=== PATIENT | female | born 1980 | race Caucasian/White ===

== ENCOUNTER 2018-01-19 13:14 | Outpatient (CLI) | payer OTHER | END 2018-01-19 13:15 | disposition home or self-care (01) | LOC: DTY/OP 13:14 | PROVIDERS: ATTEND Specialist | DX: Z01.818 Encounter for other preprocedural examination (principal); E66.01 Morbid (severe) obesity due to excess calories; Z68.42 Body mass index [BMI] 45.0-49.9, adult | CPT/HCPCS: 36415; 80053; 80061; 82306; 82607; 82728; 82746; 83036; 83540; 84425; 84436; 84443; 84480; 85025; 86677; 97802 ==

== ENCOUNTER 2018-03-04 05:30 | Outpatient (CLI) | payer OTHER ==
[2018-03-04 13:29] LABS: BHCG - Serum Negative (NEGATIVE); Pregs Control Background? CLEAR/WHITE (CLR/WHITE); Pregs Control Bar Appear? YES (CONTROL BAR)
== END 2018-03-04 05:31 | disposition home or self-care (01) ==
LOC: LABBT 05:30
PROVIDERS: ATTEND Specialist
DX: Z01.818 Encounter for other preprocedural examination (principal); E11.9 Type 2 diabetes mellitus without complications; I10 Essential (primary) hypertension; E66.01 Morbid (severe) obesity due to excess calories; Z68.43 Body mass index [BMI] 50.0-59.9, adult
CPT/HCPCS: 84703; 93005; 93010

== ENCOUNTER 2018-03-04 12:00 | Inpatient (IN) | payer OTHER ==
[2018-03-04 12:35] VITALS: BMI 46.9
[2018-03-08] MEDS ORDERED: Fentanyl 250 MCG/5 ML VIAL ONE (06:11)
[2018-03-08] MEDS ORDERED: Bupivacaine HCl 0.25%/Epi 0.0005/PF 10 ML VIAL FS ONE ×2 (06:46→07:55)
[2018-03-08] MEDS ORDERED: Midazolam HCl 2 mg/2 ml Vial ONE (06:51)
[2018-03-08] MEDS ORDERED: Heparin 5,000 UNITS/ML VIAL ONE (06:54)
[2018-03-08] MEDS ORDERED: Scopolamine 1.5 mg/72 hour Patch ONE (06:54)
[2018-03-08] MEDS ORDERED: Ketorolac Tromethamine 30 MG/ML VIAL ONE (06:54)
[2018-03-08] MEDS ORDERED: Promethazine HCl 25 MG/ML VIAL IM PRN ×2 (07:15→12:31)
[2018-03-08] MEDS ORDERED: Ondansetron HCl/PF 4 MG/2 ML Vial IVP PRN (07:15)
[2018-03-08] MEDS ORDERED: Promethazine HCl 25 MG/ML VIAL SLOW IVP PRN (07:15)
[2018-03-08] MEDS ORDERED: Acetaminophen 1,000 MG in Premix Bag 1 BAG IVPB ONE (07:15)
[2018-03-08] MEDS ORDERED: Meperidine HCl/PF 25 MG/ML VIAL SLOW IVP PRN (07:15)
[2018-03-08] MEDS ORDERED: Ketorolac Tromethamine 30 MG/ML VIAL IVP SCH (07:15)
[2018-03-08] MEDS ORDERED: Heparin 5,000 UNITS/ML VIAL SC SCH (07:15)
[2018-03-08] MEDS ORDERED: Scopolamine 1.5 mg/72 hour Patch TOP SCH (07:15)
[2018-03-08] MEDS ORDERED: cefOXitin 2 GM in Sodium Chloride 0.9% 100 ML IVPB ONE (07:15)
[2018-03-08] MEDS ORDERED: Fentanyl 100 MCG/2 ML VIAL ONE ×3 (08:54→11:44)
[2018-03-08] MEDS ORDERED: Promethazine HCl 25 MG/ML VIAL ONE (09:18)
[2018-03-08] MEDS ORDERED: hydrALAZINE 20 MG/ML VIAL SLOW IVP PRN (12:31)
[2018-03-08] MEDS ORDERED: diphenhydrAMINE 50 MG/ML VIAL IVP PRN (12:31)
[2018-03-08] MEDS ORDERED: Dextrose 50% Abboject 50 ML SYRINGE SLOW IVP PRN (12:31)
[2018-03-08] MEDS ORDERED: Morphine 4 MG/ML VIAL SLOW IVP PRN (12:31)
[2018-03-08] MEDS ORDERED: Dextrose 5% in Water 1,000 ML IV PRN (12:31)
[2018-03-08] MEDS ORDERED: Ondansetron PF 4 MG/2 ML Vial IVP PRN (12:31)
[2018-03-08] MEDS: Morphine 4 MG/ML VIAL SLOW IVP PRN ×3 (13:33→21:38)
[2018-03-08] MEDS ORDERED: Ondansetron PF 4 MG/2 ML Vial ONE (15:42)
[2018-03-08] MEDS ORDERED: Metoclopramide HCl 10 MG/2 ML VIAL ONE (15:42)
[2018-03-08] MEDS ORDERED: Glycopyrrolate 0.2 MG/ML 5 ML SYRINGE ONE (15:42)
[2018-03-08] MEDS ORDERED: Rocuronium Bromide 10 MG/ML (10ML VIAL) ONE (15:42)
[2018-03-08] MEDS ORDERED: PROPOFOL 200 MG/20 ML VIAL ONE (15:42)
[2018-03-08] MEDS ORDERED: Lidocaine 1% PF 5 ML VIAL ONE (15:42)
[2018-03-08] MEDS: D5 1/2 NS w/20 mEq KCL 1,000 ML IV SCH ×3 (16:05→23:07)
--- NOTE | 2018-03-08 17:53 | OP ---
DATE OF PROCEDURE: 03/08/2018 PREOPERATIVE DIAGNOSIS: Morbid obesity. POSTOPERATIVE DIAGNOSIS: Morbid obesity. PROCEDURE PERFORMED: Laparoscopic sleeve gastrectomy. ANESTHESIA: General endotracheal. INDICATIONS: The patient is a 37-year-old morbidly obese white female. She presents following extensive preoperative evaluation and education for her sleeve gastrectomy. DESCRIPTION OF PROCEDURE: Informed consent was obtained. The patient was taken to the operating room where general endotracheal anesthesia was obtained with the patient in supine position. Abdomen was prepped with ChloraPrep and draped in sterile fashion. Local anesthetic was infiltrated and 5 mm supraumbilical incision was created through which Veress needle was passed to the peritoneal cavity and pneumoperitoneum established using carbon dioxide up to a pressure of 15 mmHg. A 5 mm trocar port was passed through this same incision. Laparoscopic camera was passed through this port. Under direct vision, 4 additional ports were placed including bilateral 5 mm subcostal ports, a 12 mm right paramedian port and a 15 mm left paramedian port. A 5 mm epigastric incision was created through which Nathansen retractor was passed into the abdominal cavity and used to retract the left lobe of the liver. The patient was placed into reverse Trendelenburg position. The ViSiGi device was advanced within the stomach and used to decompress this. The pylorus was identified and beginning 4 cm proximal to the pylorus, the omentum and vascular tissue along the greater curvature was divided using the LigaSure in an ascending fashion up to the angle of His. All posterior adhesions were mobilized. The short gastric vessels were carefully divided and then hemostasis was maintained using the LigaSure. Once this was completely mobilized, the ViSiGi was carefully positioned at the level of the pylorus and placed to suction, which was clearly defining the lesser curvature of the stomach. The gastrectomy was then performed using a series of fires of the [place] stapler using a green load followed by a gold load and a series of blue loads until completion of the gastrectomy. The ViSiGi along the lesser curvature was used as a size 36 bougie to guide in the gastric division. Care was taken to avoid narrowing the incisura or the gastroesophageal junction. The integrity of the staple line was then assessed by insufflating gas through the ViSiGi while irrigating along the staple line. There was no evidence of an air leak. There was no evidence of bleeding along the staple line. The resected stomach was then removed through the 15 mm port and the fascia was closed with 0 Vicryl suture using a GraNee needle. I then closed the 12 mm port also using the GraNee needle and 0 Vicryl suture. The Max retractor was removed. All ports and instruments were removed under direct vision. All irrigant was aspirated. Pneumoperitoneum was carefully evacuated. 0.25% Marcaine with epinephrine was infiltrated into each port site. Skin edges approximated with 4-0 Monocryl subcuticular suture. Dermabond was placed externally. There were no complications. The patient tolerated the procedure well and was taken to recovery room in stable condition. FINDINGS: The patient had no intraabdominal adhesions and no abnormal anatomy. There was no evidence of fatty liver, but her liver was still relatively large. The surgery was performed safely and with essentially no blood loss. There was an excellent appearance to the sleeve at the end of the procedure and no evidence of any leak. She was taken to recovery room in stable condition. Job ID: [id number]
[2018-03-08] MEDS: Acetaminophen 1,000 MG in Premix Bag 1 BAG IVPB SCH ×2 (18:01→23:07)
[2018-03-08] MEDS: Ketorolac Tromethamine 30 MG/ML VIAL IVP SCH ×2 (18:01→23:08)
[2018-03-08] MEDS ORDERED: Enoxaparin Sodium 40 MG/0.4 ML SYRINGE SC SCH (21:00)
[2018-03-09] MEDS: Acetaminophen 1,000 MG in Premix Bag 1 BAG IVPB SCH (05:09)
[2018-03-09] MEDS: Ketorolac Tromethamine 30 MG/ML VIAL IVP SCH (05:09)
[2018-03-09 06:25] LABS: #Eosinphils 0.1 thou/uL (0.0-0.7); #Lymphocytes 2.2 thou/uL (1.20-3.40); #Monocytes 0.5 thou/uL (0.11-0.59); #Neutrophils 3.6 thou/uL (1.40-6.50); %Basophils 0.3 % (0.0-1.0); %Eosinophils 1.2 % (0.0-10.0); %Lymphocytes 34.9 % (21.0-51.0); %Monocytes 7.3 % (0.0-10.0); %Neutrophils 56.3 % (42.0-75.0); Hemoglobin 10.6 g/dL (12.0-16.0); Mean Corpuscular HGB CONC 32.5 g/dL (32.0-36.0); Mean Corpuscular Hemoglobin 28.3 pg (27.0-31.0); Mean Corpuscular Volume 87.1 fL (78.0-98.0); Mean Platelet Volume 6.6 fL (7.4-10.4); Platelet Count 348 thou/uL (130-400); RBC Distribution Width 12.6 % (11.5-14.5); Red Blood Cell (RBC) Count 3.73 mill/uL (4.20-5.40); White Blood Cell (WBC) Count 6.3 thou/uL (4.8-10.8)
[2018-03-09 06:41] LABS: Anion Gap 14 mmol/L (10-20); BUN (Urea Nitrogen) 4 mg/dL (7.0-18.7); Calc. Creatinine Clearance 228 mL/min (70-130); Calcium 8.1 mg/dL (7.8-10.44); Carbon Dioxide 23 mmol/L (22-29); Chloride 105 mmol/L (98-107); Estimated GFR-MDRD Greater than 90; Glucose 115 mg/dL (70-105); Potassium 3.8 mmol/L (3.5-5.1); Sodium 138 mmol/L (136-145)
[2018-03-09 08:18] VITALS: BP 111/73; TEMP 97.7
[2018-03-09] MEDS ORDERED: Pantoprazole 40 MG VIAL IVP SCH (09:00)
[2018-03-09] MEDS ORDERED: Hydrocodone-Acetamin 15 ML UDCUP PO PRN (18:00)
== END 2018-03-09 11:24 | disposition home or self-care (01) | DRG 621 ==
LOC: SURG A 03-08 05:47
PROVIDERS: ADMIT Specialist; ATTEND Specialist
PROC: 0DB64Z3 Excision of Stomach, Percutaneous Endoscopic Approach, Vertical (ICD-10-PCS; principal; 2018-03-08)
DX: E66.01 Morbid (severe) obesity due to excess calories (principal); I10 Essential (primary) hypertension; E11.9 Type 2 diabetes mellitus without complications; K21.9 Gastro-esophageal reflux disease without esophagitis; E03.9 Hypothyroidism, unspecified; Z68.42 Body mass index [BMI] 45.0-49.9, adult
CPT/HCPCS: 36415; 80048; 85025; 88307; 88312; C9113; J0131; J0694; J1644; J1650; J1885; J2001; J2250; J2270; J2405; J2550; J2704; J2765; J3010; J7050

== ENCOUNTER 2018-11-04 08:48 | Outpatient (CLI) | payer OTHER ==
--- NOTE | 2018-11-04 10:22 | ULT ---
ULTRASOUND GALLBLADDER RIGHT UPPER QUADRANT: CLINICAL HISTORY: Abdominal pain. COMPARISON: None. FINDINGS: Pancreas: Obscured by bowel gas. Liver:Heterogeneous echotexture which may be due to hepatic steatosis or hepatocellular disease. Limi contreras evaluation for hepatic masses and intrahepatic biliary dilatation. The contour of the hepatic margin is maintained. Right hepatic lobe measures 17.1 cm. Portal vein: Patent with appropriate directional flow. Gallbladder: Sonographic evidence of sludge and stones within the lumen of the gallbladder. Gallbladd er wall is not thickened. No pericholecystic fluid. Ferreira's sign:Negative. Bile ducts: Common bile duct diameter is 0.29 cm. Right kidney: No hydronephrosis. Right kidney measures 5.5 x 5.6 x 10.8 cm in length. IMPRESSION: 1. Sonographic evidence of sludge and stones within the lumen of the gallbladder. No definite sonogra phic evidence of cholecystitis. Consider HIDA scan. 2. Mild hepatomegaly and coarsening of the hepatic parenchymal echotexture which may be due to hepati c steatosis or hepatocellular disease. If there is concern for hepatic masses, liver mass protocol CT can be performed. Transcribed Date/Time: 11/04/2018 10:50 AM
--- NOTE | 2018-11-04 10:33 | RAD ---
UPPER GI: HISTORY: Upper abdominal pain, uncertain etiology. Patient has had a bariatric surgery performed in February 27. Exposure 1.7 minutes; dose 28.803 uGy*^cm2. FINDINGS: Initial feather cutting machine feeder abdomen radiograph demonstrates a nonspecific bowel gas pattern. Thoracic esophagus has an overall normal course and caliber. No mucosal abnormality. There is evidenc e of intermittent reflux during fluoroscopy. The residual stomach and small bowel loops have an overall appropriate mucosal appearance. Multiple n ormal caliber small bowel loops. Supine and upright abdomen radiograph demonstrates contrast opacifying multiple small bowel loops. Contrast is also noted in the colon suggesting a rapid transit time. IMPRESSION: 1. Intermittent reflux during fluoroscopy. 2. No evidence of obstruction at the level of the bariatric surgical change. There is rapid transit w ith contrast opacifying the colon on the postprocedure supine and upright radiographs series. Transcribed Date/Time: 11/04/2018 10:53 AM
== END 2018-11-04 08:49 | disposition home or self-care (01) ==
LOC: ULT 08:48
PROVIDERS: ATTEND Specialist
DX: R10.10 Upper abdominal pain, unspecified (principal); K21.9 Gastro-esophageal reflux disease without esophagitis; K80.20 Calculus of gallbladder without cholecystitis without obstruction; K82.8 Other specified diseases of gallbladder; R16.0 Hepatomegaly, not elsewhere classified; Z98.84 Bariatric surgery status
CPT/HCPCS: 74247; 76705

== ENCOUNTER 2018-12-06 05:49 | Day surgery (SDC) | payer OTHER ==
[2018-12-05 14:34] VITALS: BMI 35.6
[2018-12-06] MEDS ORDERED: Ketorolac Tromethamine 30 MG/ML VIAL ONE (06:40)
[2018-12-06] MEDS ORDERED: Fentanyl 100 MCG/2 ML VIAL ONE ×2 (06:51→09:01)
[2018-12-06] MEDS ORDERED: Midazolam HCl 2 mg/2 ml Vial ONE (06:51)
[2018-12-06 06:54] LABS: #Eosinphils 0.3 thou/uL (0.0-0.7); #Lymphocytes 2.2 thou/uL (1.20-3.40); #Monocytes 0.3 thou/uL (0.11-0.59); #Neutrophils 2.6 thou/uL (1.40-6.50); %Basophils 0.7 % (0.0-1.0); %Lymphocytes 39.9 % (21.0-51.0); %Monocytes 5.4 % (0.0-10.0); Hemoglobin 12.7 g/dL (12.0-16.0); Mean Corpuscular HGB CONC 33.5 g/dL (32.0-36.0); Mean Corpuscular Hemoglobin 29.2 pg (27.0-31.0); Mean Corpuscular Volume 87.3 fL (78.0-98.0); Mean Platelet Volume 6.5 fL (7.4-10.4); Platelet Count 358 thou/uL (130-400); RBC Distribution Width 12.4 % (11.5-14.5); Red Blood Cell (RBC) Count 4.34 mill/uL (4.20-5.40); White Blood Cell (WBC) Count 5.4 thou/uL (4.8-10.8)
[2018-12-06] MEDS ORDERED: Ondansetron PF 4 MG/2 ML Vial ONE (06:55)
[2018-12-06] MEDS ORDERED: Famotidine/PF 20 mg/2ml Vial ONE (06:55)
[2018-12-06] MEDS ORDERED: Scopolamine 1.5 mg/72 hour Patch ONE (06:55)
[2018-12-06] MEDS ORDERED: Bupivacaine/Epinephrine 0.25% 30 ML VIAL ONE (07:04)
[2018-12-06 07:10] LABS: ALT (SGPT) 11 U/L (8-55); AST (SGOT) 12 U/L (5-34); Albumin 3.8 g/dL (3.5-5.0); Alkaline Phosphatase 84 U/L (40-110); Anion Gap 13 mmol/L (10-20); BUN (Urea Nitrogen) 9 mg/dL (7.0-18.7); Bilirubin, Total 0.4 mg/dL (0.2-1.2); Calc. Creatinine Clearance 171 mL/min (70-130); Calcium 9.4 mg/dL (7.8-10.44); Carbon Dioxide 27 mmol/L (22-29); Chloride 107 mmol/L (98-107); Estimated GFR-MDRD Greater than 90; Globulin 3.3 g/dL (2.4-3.5); Glucose 83 mg/dL (70-105); Potassium 3.9 mmol/L (3.5-5.1); Protein, Total 7.1 g/dL (6.0-8.3); Sodium 143 mmol/L (136-145)
[2018-12-06] MEDS ORDERED: Lidocaine 1% PF 5 ML VIAL ONE (19:39)
[2018-12-06] MEDS ORDERED: Glycopyrrolate 0.2 MG/ML 5 ML SYRINGE ONE (19:39)
[2018-12-06] MEDS ORDERED: Rocuronium Bromide 10 MG/ML (10ML VIAL) ONE (19:39)
[2018-12-06] MEDS ORDERED: Succinylcholine Chloride 20 MG/ML 10 ml SYRINGE FS ONE (19:39)
[2018-12-06] MEDS ORDERED: PROPOFOL 200 MG/20 ML VIAL ONE (19:39)
--- NOTE | 2018-12-07 13:08 | OP ---
DATE OF PROCEDURE: 12/06/2018 PREOPERATIVE DIAGNOSIS: Symptomatic cholelithiasis. POSTOPERATIVE DIAGNOSIS: Symptomatic cholelithiasis with finding of multiple 1-cm stones in her gallbladder. PROCEDURE PERFORMED: Laparoscopic cholecystectomy. ANESTHESIA: General endotracheal. INDICATIONS: The patient is a 38-year-old white female. She is status post laparoscopic sleeve gastrectomy in treatment of obesity. She has had excellent weight loss since her surgery. She has, however, recently developed epigastric abdominal pain. Imaging studies show evidence of cholelithiasis and I have recommended laparoscopic cholecystectomy. PROCEDURE IN DETAIL: Informed consent was obtained. The patient was taken to the operating room where general endotracheal anesthesia was obtained with the patient in the supine position. The abdomen was prepped with Betadine and draped in the usual sterile fashion. 0.25% Marcaine with epinephrine was infiltrated below the umbilicus and a 10 mm infraumbilical incision was created. A Veress needle was passed through this incision into the peritoneal cavity. A pneumoperitoneum was established using carbon dioxide up to a pressure of 15 mmHg. Local anesthetic was infiltrated and 3 additional 5 mm right upper quadrant incisions were created. Through the mid incision, a 5 mm port was passed into the peritoneal cavity. The camera was passed through this port and under direct vision, an 11 port was passed through the infraumbilical incision. The camera was replaced through this port, and under direct vision, 2 additional 5 mm ports were passed through the incisions already created. The gallbladder was grasped and retracted in a cephalad direction. Minimal adhesions were bluntly stripped away from the apex of the gallbladder, and the apex was retracted laterally and inferiorly. Careful dissection was carried out to the apex of the gallbladder to identify the cystic duct and cystic artery. These were each carefully dissected circumferentially. The duct was of normal caliber. Both the duct and the artery were divided between clips, leaving 2 on the side to remain within the abdomen. The gallbladder was then dissected out of the gallbladder fossa using electrocautery and removed through the infraumbilical port site. The fascia was closed with 0 Vicryl suture and a GraNee needle. The right upper quadrant was inspected and irrigated. All irrigant was aspirated. All ports and instruments were removed under direct vision. Pneumoperitoneum was carefully evacuated. Additional local anesthetic was infiltrated into each port site. The skin edges were approximated with 4-0 Monocryl subcuticular sutures, and Dermabond was placed externally. There were no complications. Blood loss was negligible. The patient tolerated the procedure well and was taken to recovery room in stable condition. FINDINGS: Her gallbladder was without acute inflammatory change, however, there was evidence of prior inflammation with adhesions to the gallbladder. There were numerous stones within the gallbladder. The duct was small and noninflamed and a cholangiogram was not obtained. Job ID: [id number]
== END 2018-12-06 10:41 | disposition home or self-care (01) ==
LOC: SDC 05:49
PROVIDERS: ATTEND Specialist
PROC: 0FT44ZZ Resection of Gallbladder, Percutaneous Endoscopic Approach (ICD-10-PCS; principal; 2018-12-06)
DX: K80.10 Calculus of gallbladder with chronic cholecystitis without obstruction (principal); K21.9 Gastro-esophageal reflux disease without esophagitis; E03.9 Hypothyroidism, unspecified; I10 Essential (primary) hypertension; E11.9 Type 2 diabetes mellitus without complications; E66.9 Obesity, unspecified; Z68.35 Body mass index [BMI] 35.0-35.9, adult; Z79.899 Other long term (current) drug therapy; Z88.1 Allergy status to other antibiotic agents
CPT/HCPCS: 80053; 85025; 88304; J0131; J0690; J1885; J2001; J2250; J2405; J2704; J3010; S0028

== ENCOUNTER 2022-07-31 07:43 | Outpatient (CLI) | payer BC | END 2022-07-31 07:44 | disposition home or self-care (01) | LOC: BICMAMMO 07:43 | PROVIDERS: ATTEND Family Medicine | DX: Z12.31 Encounter for screening mammogram for malignant neoplasm of breast (principal); Z80.3 Family history of malignant neoplasm of breast | CPT/HCPCS: 77063; 77067 ==